=== PATIENT | female | born 1985 | race Caucasian/White ===

== ENCOUNTER → 2020-07-06 | Outpatient (CLI) | payer OTHER ==
--- NOTE | 2020-07-06 14:45 | Diagnostic Imaging Report ---
PROCEDURE: US right lower extremity venous. TECHNIQUE: Multiple real-time grayscale images were obtained over the right lower extremity in various projections. Additional spectral analysis and color Doppler duplex images were also obtained. INDICATION: Right calf pain. FINDINGS: There is no evidence of right lower extremity DVT. Right lower extremity deep venous system shows normal compressibility with normal response to augmentation and Valsalva. No fluid collection or mass is detected. IMPRESSION: No evidence of right lower extremity DVT. Dictated by: Dictated on workstation # [id number]
== END ==
LOC: RAD 11:47
PROVIDERS: ATTEND Family Medicine
DX: M79.661 Pain in right lower leg (principal)